=== PATIENT | male | born 1985 | race Caucasian/White ===

== ENCOUNTER 2019-04-12 18:18 | Observation (INO) | payer BC ==
[2019-04-12] MEDS ORDERED: Ondansetron 4 MG/2 ML SDV IV ONE (18:29)
--- NOTE | 2019-04-12 18:29 | EDM.PDOC ---
<Shakeel Lackey M - Last Filed: 04/12/19 18:24> ED HPI GENERAL MEDICAL PROBLEM - General Chief Complaint: General Stated Complaint: AMBULANCE Time Seen by Provider: 04/12/19 18:18 Source of Information: Reports: Patient History Limitations: Reports: No Limitations - History of Present Illness INITIAL COMMENTS - FREE TEXT/NARRATIVE: This 34 yo male patient was brought to the ED by [facility] due to dizziness along with nausea and vomiting. The patient reports he had some nausea and vomiting yesterday, but was feeling well up until this incident. The patient reports he feels like the room is spinning at this time. The patient has not had any previous similar episodes in the past. The patient reports he feels like he has some tingling in his forehead and extremities. Onset: Today Duration: Hour(s):, Constant Location: Reports: Generalized Quality: Reports: Other Severity: Moderate Improves with: Reports: None Worsens with: Reports: None Context: Reports: Other Associated Symptoms: Reports: No Other Symptoms Head Pain Score (Numeric/FACES): 5 - Related Data Allergies Allergy/AdvReac Type Severity Reaction Status Date / Time Penicillins Allergy Nausea and Verified 04/12/19 20:46 Vomiting Home Meds: Home Meds . [No Known Home Meds] 04/12/19 [History] ED ROS GENERAL - Review of Systems Review Of Systems: Comprehensive ROS is negative, except as noted in HPI. ED EXAM, GENERAL - Physical Exam Exam: See Below Exam Limited By: No Limitations General Appearance: Alert, WD/WN, Moderate Distress Eye Exam: Bilateral Eye: EOMI, Normal Inspection, PERRL Ears: Normal External Exam, Normal Canal, Hearing Grossly Normal, Normal TMs Nose: Normal Inspection, Normal Mucosa, No Blood Throat/Mouth: Normal Inspection, Normal Lips, Normal Teeth, Normal Gums, Normal Oropharynx, Normal Voice, No Airway Compromise Head: Atraumatic, Normocephalic Neck: Normal Inspection, Supple, Non-Tender, Full Range of Motion Respiratory/Chest: No Respiratory Distress, Lungs Clear, Normal Breath Sounds, No Accessory Muscle Use, Chest Non-Tender Cardiovascular: Normal Peripheral Pulses, Regular Rate, Rhythm, No Edema, No Gallop, No JVD, No Murmur, No Rub GI/Abdominal: Normal Bowel Sounds, Soft, Non-Tender, No Organomegaly, No Distention, No Abnormal Bruit, No Mass (Male) Exam: Deferred Rectal (Males) Exam: Deferred Back Exam: Normal Inspection, Full Range of Motion, NT Extremities: Normal Inspection, Normal Range of Motion, Non-Tender, Normal Capillary Refill, No Pedal Edema Neurological: Alert, Oriented, CN II-XII Intact, Normal Cognition, Normal Gait, Normal Reflexes, No Motor/Sensory Deficits Psychiatric: Normal Affect, Normal Mood Skin Exam: Warm, Dry, Intact, Normal Color, No Rash Course - Vital Signs Last Recorded V/S: Last Vital Signs Temp 97.9 F 04/13/19 04:09 Pulse 67 04/13/19 04:09 Resp 16 04/13/19 04:09 BP 110/58 L 04/13/19 04:09 Pulse Ox 98 04/13/19 04:09 - Orders/Labs/Meds Orders: Active Orders 24 hr Category Date Time Status EKG Documentation Completion [RC] URGENT Care 04/12/19 18:19 Active CULTURE URINE [RM] Urgent Lab 04/12/19 21:25 Received Medication Orders Acetaminophen (Tylenol) 650 mg PO Q4H PRN PRN Reason: Pain (Mild 1-3)/fever Heparin Sodium (Porcine) (Heparin Sodium) 5,000 units SUBCUT Q8HR OZ Potassium Chloride/Sodium Chloride (Normal Saline With 20 Meq Kcl) 1,000 mls @ 125 mls/hr IV ASDIRECTED OZ Last Admin: 04/12/19 23:38 Dose: 125 mls/hr Meclizine HCl (Antivert) 25 mg PO Q6H OZ Last Admin: 04/13/19 04:06 Dose: 25 mg Admin: 04/12/19 22:57 Dose: 25 mg Ondansetron HCl (Zofran Odt) 4 mg PO Q6H PRN PRN Reason: nausea, able to take PO Ondansetron HCl (Zofran) 4 mg IVPUSH Q4H PRN PRN Reason: Nausea/Vomiting Sodium Chloride (Saline Flush) 10 ml FLUSH ASDIRECTED PRN PRN Reason: Keep Vein Open Last Admin: 04/12/19 23:37 Dose: 10 ml Zolpidem Tartrate (Ambien) 5 mg PO BEDTIME PRN PRN Reason: Sleep Labs: Laboratory Tests 04/12/19 04/12/19 Range/Units 18:10 18:10 WBC 19.5 H (5.0-10.0) 10^3/uL RBC 5.49 (4.6-6.2) 10^6/uL Hgb 17.8 (14.0-18.0) g/dL Hct 48.9 (40.0-54.0) % MCV 89.1 (80-100) fL MCH 32.4 (27.0-34.0) pg MCHC 36.4 H (33.0-35.0) g/dL Plt Count 257 (150-450) 10^3/uL Neut % (Auto) 76.5 H (42.2-75.2) % Lymph % (Auto) 17.1 L (20.5-50.1) % [place] % (Auto) 5.6 (2-8) % Eos % (Auto) 0.6 L (1.0-3.0) % Baso % (Auto) 0.2 (0.0-1.0) % Sodium 135 (135-145) mmol/L Potassium 3.7 (3.6-5.0) mmol/L Chloride 101 (101-111) mmol/L Carbon Dioxide 21.0 (21.0-31.0) mmol/L Anion Gap 16.7 BUN 11 (7-18) mg/dL Creatinine 1.1 (0.6-1.3) mg/dL Est Cr Clr Drug Dosing 92.41 mL/min Estimated GFR (MDRD) > 60 BUN/Creatinine Ratio 10.00 Glucose 158 H (74-105) mg/dL Calcium 9.5 (8.4-10.2) mg/dl Total Bilirubin 1.3 H (0.2-1.0) mg/dL AST 28 (10-42) IU/L ALT 30 (10-60) IU/L Alkaline Phosphatase 72 (42-121) IU/L Troponin I < 0.02 (0.00-0.02) ng/ml Total Protein 7.5 (6.7-8.2) g/dl Albumin 4.7 (3.2-5.5) g/dl Globulin 2.8 Albumin/Globulin Ratio 1.68 Meds: Medications Generic Name Dose Route Start Last Admin Trade Name Freq PRN Reason Stop Dose Admin Acetaminophen 650 mg 04/12/19 22:17 Tylenol PO Q4H PRN Pain (Mild 1-3)/fever Heparin Sodium (Porcine) 5,000 units 04/13/19 06:00 Heparin Sodium SUBCUT Q8HR OZ Potassium Chloride/Sodium Chloride 1,000 mls @ 125 mls/hr 04/12/19 22:30 01/21 23:38 Normal Saline With 20 Meq Kcl IV 125 mls/hr ASDIRECTED OZ Administration Meclizine HCl 25 mg 04/12/19 22:30 04/13/19 04:06 Antivert PO 25 mg Q6H OZ Administration Ondansetron HCl 4 mg 04/13/19 00:30 Zofran Odt PO Q6H PRN nausea, able to take PO Ondansetron HCl 4 mg 04/13/19 00:30 Zofran IVPUSH Q4H PRN Nausea/Vomiting Sodium Chloride 10 ml 04/12/19 22:17 04/12/19 23:37 Saline Flush FLUSH 10 ml ASDIRECTED PRN Administration Keep Vein Open Zolpidem Tartrate 5 mg 04/12/19 22:17 Ambien PO BEDTIME PRN Sleep Discontinued Medications Generic Name Dose Route Start Last Admin Trade Name Freq PRN Reason Stop Dose Admin Metoclopramide HCl 10 mg 04/12/19 19:16 04/12/19 19:18 Reglan IVPUSH 04/12/19 19:17 10 mg ONETIME ONE Administration Metoclopramide HCl 10 mg 04/12/19 19:16 04/12/19 19:22 Reglan IVPUSH 04/12/19 19:17 Not Given ONETIME ONE Ondansetron HCl 4 mg 04/12/19 18:29 04/12/19 18:37 Zofran IV 04/12/19 18:30 4 mg ONETIME ONE Administration Departure - Departure Disposition: Home, Self-Care 01 Clinical Impression: Vertigo, intermittent Vomiting Qualifiers: Vomiting type: bilious vomiting Nausea presence: with nausea Qualified Code(s) : R11.14 - Bilious vomiting - Discharge Information - My Orders Last 24 Hours: My Active Orders 04/12/19 21:25 CULTURE URINE [RM] Urgent - Assessment/Plan Last 24 Hours: My Active Orders 04/12/19 21:25 CULTURE URINE [RM] Urgent <Vero Georges - Last Filed: 04/13/19 04:47> Course - Radiology Interpretation Free Text/Narrative:: Head CT negative, see report - Re-Assessments/Exams Free Text/Narrative Re-Assessment/Exam: 04/13/19 04:43 Dr Mckeon accepted patient for further management. Nausea improved. Cheeks flushed, Extremities warm. Departure - Departure Time of Disposition: 20:35 Condition: Good - Discharge Information *PRESCRIPTION DRUG MONITORING PROGRAM REVIEWED*: No *COPY OF PRESCRIPTION DRUG MONITORING REPORT IN PATIENT CONCHA: No
[2019-04-12 18:37] LABS: ANION GAP 16.7; CHLORIDE,CL 101 mmol/L (101-111); SODIUM,NA 135 mmol/L (135-145)
[2019-04-12] MEDS ORDERED: Metoclopramide 10 MG/2 ML SDV IVPUSH ONE ×2 (19:16)
[2019-04-12] MEDS ORDERED: Acetaminophen 325 MG Tab PO PRN (22:17)
[2019-04-12] MEDS ORDERED: Zolpidem 5 MG Tab PO PRN (22:17)
[2019-04-12] MEDS ORDERED: Sodium Chloride 0.9% 10 ML Syringe FLUSH PRN (22:17)
--- NOTE | 2019-04-12 22:30 | PCM.HP ---
H&P History of Present Illness - General Date of Service: 04/12/19 Admit Problem/Dx: Admission Diagnosis/Problem Admission Diagnosis/Problem Dizziness Source of Information: Patient History Limitations: Reports: No Limitations - History of Present Illness Initial Comments - Free Text/Narative: 34-year-old with no significant past medical history. 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 He developed relatively sudden onset of vertigo, feeling spinning sensation. Associated with nausea and vomiting. Some tingling in the forehead and extremities but no focal motor deficit. The vertigo is worse with sitting up, movements of the head. No fever, no sore throat, no earache. No chest pain, no palpitation. Head Pain Score (Numeric/FACES): 0 - Related Data Allergies/Adverse Reactions: Allergies Allergy/AdvReac Type Severity Reaction Status Date / Time Penicillins Allergy Nausea and Verified 04/12/19 20:46 Vomiting Home Medications: Home Meds . [No Known Home Meds] 04/12/19 [History] Past Medical History HEENT History: Reports: Impaired Vision Cardiovascular History: Reports: None Respiratory History: Reports: None Gastrointestinal History: Reports: None Genitourinary History: Reports: None Musculoskeletal History: Reports: Other (See Below) Other Musculoskeletal History: pinched sciatic nerve Neurological History: Reports: Other (See Below) Other Neuro History: sciatica Psychiatric History: Reports: Learning Disability Endocrine/Metabolic History: Reports: None Hematologic History: Reports: None Immunologic History: Reports: None Oncologic (Cancer) History: Reports: None Dermatologic History: Reports: None - Infectious Disease History Infectious Disease History: Reports: Chicken Pox - Past Surgical History Head Surgeries/Procedures: Reports: None Cardiovascular Surgical History: Reports: None GI Surgical History: Reports: None Male Surgical History: Reports: None Endocrine Surgical History: Reports: None Neurological Surgical History: Reports: None Musculoskeletal Surgical History: Reports: None Social & Family History - Family History Family Medical History: Noncontributory - Tobacco Use Smoking Status *Q: Current Every Day Smoker Years of Tobacco use: 16 Packs/Tins Daily: 1 Second Hand Smoke Exposure: No - Caffeine Use Caffeine Use: Reports: Energy Drinks - Recreational Drug Use Recreational Drug Use: No H&P Review of Systems - Review of Systems: Review Of Systems: See Below General: Denies: Fever, Chills Pulmonary: Denies: Shortness of Breath Cardiovascular: Denies: Chest Pain, Edema Gastrointestinal: Denies: Abdominal Pain Genitourinary: Denies: Dysuria Exam - Exam Exam: See Below - Vital Signs Vital Signs: Last Vital Signs Temp 36.7 C 04/12/19 20:42 Pulse 79 04/12/19 20:42 Resp 16 04/12/19 20:42 BP 118/66 04/12/19 20:42 Pulse Ox 99 04/12/19 20:42 Weight: 83.915 kg - Exam General: Alert, Oriented Neck: Supple Lungs: Clear to Auscultation, Normal Respiratory Effort Cardiovascular: Regular Rate, Regular Rhythm GI/Abdominal Exam: Normal Bowel Sounds, Soft, Non-Tender Back Exam: Normal Inspection Extremities: Normal Inspection, No Pedal Edema Skin: Warm, Dry Neuro Extensive - Mental Status: Alert, Oriented x3, Other (Nystagmus when looking towards the right) Neuro Extensive - Motor, Sensory, Reflexes: No: Abnormal Sensation, Abnormal Motor, Tremor Psychiatric: Alert, Normal Affect, Normal Mood - Patient Data Lab Results Last 24 hrs: Laboratory Results - last 24 hr 04/12/19 04/12/19 04/12/19 Range/Units 18:10 18:10 21:25 WBC 19.5 H (5.0-10.0) 10^3/uL RBC 5.49 (4.6-6.2) 10^6/uL Hgb 17.8 (14.0-18.0) g/dL Hct 48.9 (40.0-54.0) % MCV 89.1 (80-100) fL MCH 32.4 (27.0-34.0) pg MCHC 36.4 H (33.0-35.0) g/dL Plt Count 257 (150-450) 10^3/uL Neut % (Auto) 76.5 H (42.2-75.2) % Lymph % (Auto) 17.1 L (20.5-50.1) % [place] % (Auto) 5.6 (2-8) % Eos % (Auto) 0.6 L (1.0-3.0) % Baso % (Auto) 0.2 (0.0-1.0) % Sodium 135 (135-145) mmol/L Potassium 3.7 (3.6-5.0) mmol/L Chloride 101 (101-111) mmol/L Carbon Dioxide 21.0 (21.0-31.0) mmol/L Anion Gap 16.7 BUN 11 (7-18) mg/dL Creatinine 1.1 (0.6-1.3) mg/dL Est Cr Clr Drug Dosing 92.41 mL/min Estimated GFR (MDRD) > 60 BUN/Creatinine Ratio 10.00 Glucose 158 H (74-105) mg/dL Calcium 9.5 (8.4-10.2) mg/dl Total Bilirubin 1.3 H (0.2-1.0) mg/dL AST 28 (10-42) IU/L ALT 30 (10-60) IU/L Alkaline Phosphatase 72 (42-121) IU/L Troponin I < 0.02 (0.00-0.02) ng/ml Total Protein 7.5 (6.7-8.2) g/dl Albumin 4.7 (3.2-5.5) g/dl Globulin 2.8 Albumin/Globulin Ratio 1.68 Urine Color Yellow (YELLOW) Urine Appearance Clear (CLEAR) Urine pH 8.5 (5.0-9.0) Ur Specific [place] 1.015 (1.005-1.030) Urine Protein Negative (NEGATIVE) Urine Glucose (UA) Negative (NEGATIVE) Urine Ketones Negative (NEGATIVE) Urine Occult Blood Negative (NEGATIVE) Urine Nitrite Negative (NEGATIVE) Urine Bilirubin Negative (NEGATIVE) Urine Urobilinogen 0.2 (0.2-1.0) mg/dL Ur Leukocyte Esterase Trace H (NEGATIVE) Result Diagrams: 04/12/19 18:10 04/12/19 18:10 - Problem List (1) BPV (benign positional vertigo) SNOMED Code(s): 145433586 ICD Code: H81.10 - BENIGN PAROXYSMAL VERTIGO, UNSPECIFIED EAR Status: Acute Current Visit: Yes Problem List Initiated/Reviewed/Updated: Yes Orders Last 24hrs: Active Orders 24 hr Category Date Time Status Admission Diagnosis [ADT] Stat ADT 04/12/19 20:28 Ordered Admission Status [Patient Status] [ADT] Routine ADT 04/12/19 20:28 Active Antiembolic Devices [RC] PER UNIT ROUTINE Care 04/12/19 22:18 Ordered EKG Documentation Completion [RC] URGENT Care 04/12/19 18:19 Active Oxygen Therapy [RC] PRN Care 04/12/19 22:17 Ordered Peripheral IV Care [RC] . DIRECTED Care 04/12/19 22:18 Ordered Up With Assistance [RC] ASDIRECTED Care 04/12/19 22:17 Ordered VTE/DVT Education [RC] PER UNIT ROUTINE Care 04/12/19 22:17 Ordered Vital Signs [RC] Q4H Care 04/12/19 22:17 Ordered Regular Diet [DIET] Diet 04/12/19 Breakfast Ordered BASIC METABOLIC PANEL,BMP [CHEM] AM Lab 04/13/19 05:15 Ordered CBC WITH AUTO DIFF [HEME] AM Lab 04/13/19 05:15 Ordered CULTURE URINE [RM] Urgent Lab 04/12/19 21:25 Received UA W/MICROSCOPIC [URIN] Urgent Lab 04/12/19 21:25 Results Acetaminophen [Tylenol] Med 04/12/19 22:17 Ordered 650 mg PO Q4H PRN Heparin Sodium Med 04/13/19 06:00 Ordered 5,000 units SUBCUT Q8HR Meclizine [Antivert] Med 04/12/19 22:30 Ordered 25 mg PO Q6H Ondansetron [Zofran ODT] Med 04/12/19 22:17 Ordered 4 mg PO Q6H PRN Ondansetron [Zofran] Med 04/12/19 22:17 Ordered 4 mg IVPUSH Q4H PRN Sodium Chloride 0.9% [Saline Flush] Med 04/12/19 22:17 Ordered 10 ml FLUSH ASDIRECTED PRN Sodium Chloride 0.9% with KCl 20 mEq @ 125 mL/Hr (1000 Med 04/12/19 22:30 Ordered mL) NS + KCl 20mEq/L [Normal Saline with 20 mEq KCl] 1,000 ml IV ASDIRECTED Zolpidem [Ambien] Med 04/12/19 22:17 Ordered 5 mg PO BEDTIME PRN Antiembolic Hose [OM.PC] Per Unit Routine Oth 04/12/19 22:18 Ordered Peripheral IV Insertion Adult [OM.PC] Routine Oth 04/12/19 22:17 Ordered Saline Lock Insert [OM.PC] Routine Oth 04/12/19 22:17 Ordered Resuscitation Status Routine Resus Stat 04/12/19 22:17 Ordered Medication Orders Acetaminophen (Tylenol) 650 mg PO Q4H PRN PRN Reason: Pain (Mild 1-3)/fever Heparin Sodium (Porcine) (Heparin Sodium) 5,000 units SUBCUT Q8HR OZ Potassium Chloride/Sodium Chloride (Normal Saline With 20 Meq Kcl) 1,000 mls @ 125 mls/hr IV ASDIRECTED OZ Meclizine HCl (Antivert) 25 mg PO Q6H OZ Ondansetron HCl (Zofran Odt) 4 mg PO Q6H PRN PRN Reason: nausea, able to take PO Ondansetron HCl (Zofran) 4 mg IVPUSH Q4H PRN PRN Reason: Nausea/Vomiting Sodium Chloride (Saline Flush) 10 ml FLUSH ASDIRECTED PRN PRN Reason: Keep Vein Open Zolpidem Tartrate (Ambien) 5 mg PO BEDTIME PRN PRN Reason: Sleep Assessment/Plan Comment:: 34-year-old who suddenly developed vertigo Likely benign positional vertigo Associated with significant nausea and vomiting. Unable to keep oral medications and nutrition down. We will give the patient IV hydration Treat with meclizine Give antiemetics Consult Occupational Therapy Doubt stroke If no resolution of symptoms or focal neuro deficit noted consider MRI DVT prophylaxis with subcutaneous heparin
[2019-04-12] MEDS: Meclizine 12.5 MG Tab PO SCH (22:57)
[2019-04-12] MEDS: NS + KCl 20mEq/L 1,000 ML IV SCH (23:38)
[2019-04-13] MEDS ORDERED: Ondansetron 4 MG/2 ML SDV IVPUSH PRN (00:30)
[2019-04-13] MEDS ORDERED: Ondansetron 4 MG Tab.DIS PO PRN (00:30)
[2019-04-13] MEDS: Meclizine 12.5 MG Tab PO SCH ×4 (04:06→21:26)
[2019-04-13] MEDS: Heparin Sodium 5,000 Units/ML Vial SUBCUT SCH ×3 (05:54→21:26)
[2019-04-13 06:33] LABS: ANION GAP 10.7; CHLORIDE,CL 107 mmol/L (101-111); SODIUM,NA 139 mmol/L (135-145)
[2019-04-13] MEDS: NS + KCl 20mEq/L 1,000 ML IV SCH ×2 (10:44→21:25)
--- NOTE | 2019-04-13 12:17 | PCM.PN ---
- General Info Date of Service: 04/13/19 Admission Dx/Problem (Free Text): Admission Diagnosis/Problem Admission Diagnosis/Problem Dizziness Subjective Update: vertigo has improved still unsteady less nausea no fever, no chills, no LATIF - Review of Systems Pulmonary: Denies: Shortness of Breath Cardiovascular: Denies: Chest Pain Gastrointestinal: Denies: Abdominal Pain - Patient Data Vitals - Most Recent: Last Vital Signs Temp 35.9 C 04/13/19 10:47 Pulse 70 04/13/19 10:47 Resp 16 04/13/19 10:47 BP 111/62 04/13/19 10:47 Pulse Ox 97 04/13/19 10:47 Weight - Most Recent: 83.915 kg I&O - Last 24 Hours: Intake & Output 04/12/19 04/13/19 04/13/19 22:59 06:59 14:59 Intake Total 770 Output Total 50 Balance -50 770 Lab Results Last 24 Hours: Laboratory Results - last 24 hr 04/12/19 04/12/19 04/12/19 Range/Units 18:10 18:10 21:25 WBC 19.5 H (5.0-10.0) 10^3/uL RBC 5.49 (4.6-6.2) 10^6/uL Hgb 17.8 (14.0-18.0) g/dL Hct 48.9 (40.0-54.0) % MCV 89.1 (80-100) fL MCH 32.4 (27.0-34.0) pg MCHC 36.4 H (33.0-35.0) g/dL Plt Count 257 (150-450) 10^3/uL Neut % (Auto) 76.5 H (42.2-75.2) % Lymph % (Auto) 17.1 L (20.5-50.1) % [place] % (Auto) 5.6 (2-8) % Eos % (Auto) 0.6 L (1.0-3.0) % Baso % (Auto) 0.2 (0.0-1.0) % Sodium 135 (135-145) mmol/L Potassium 3.7 (3.6-5.0) mmol/L Chloride 101 (101-111) mmol/L Carbon Dioxide 21.0 (21.0-31.0) mmol/L Anion Gap 16.7 BUN 11 (7-18) mg/dL Creatinine 1.1 (0.6-1.3) mg/dL Est Cr Clr Drug Dosing 92.41 mL/min Estimated GFR (MDRD) > 60 BUN/Creatinine Ratio 10.00 Glucose 158 H (74-105) mg/dL Calcium 9.5 (8.4-10.2) mg/dl Total Bilirubin 1.3 H (0.2-1.0) mg/dL AST 28 (10-42) IU/L ALT 30 (10-60) IU/L Alkaline Phosphatase 72 (42-121) IU/L Troponin I < 0.02 (0.00-0.02) ng/ml Total Protein 7.5 (6.7-8.2) g/dl Albumin 4.7 (3.2-5.5) g/dl Globulin 2.8 Albumin/Globulin Ratio 1.68 Urine Color Yellow (YELLOW) Urine Appearance Clear (CLEAR) Urine pH 8.5 (5.0-9.0) Ur Specific [place] 1.015 (1.005-1.030) Urine Protein Negative (NEGATIVE) Urine Glucose (UA) Negative (NEGATIVE) Urine Ketones Negative (NEGATIVE) Urine Occult Blood Negative (NEGATIVE) Urine Nitrite Negative (NEGATIVE) Urine Bilirubin Negative (NEGATIVE) Urine Urobilinogen 0.2 (0.2-1.0) mg/dL Ur Leukocyte Esterase Trace H (NEGATIVE) Urine RBC 0-5 /HPF Urine WBC 5-10 H (0-5/HPF) /HPF Ur Epithelial Cells Few (NOT SEEN) /HPF Urine Bacteria Few (0-FEW/HPF) /HPF Urine Mucus Moderate H (NOT SEEN) /LPF 04/13/19 04/13/19 Range/Units 05:35 05:35 WBC 12.9 H (5.0-10.0) 10^3/uL RBC 4.70 (4.6-6.2) 10^6/uL Hgb 15.3 D (14.0-18.0) g/dL Hct 43.4 (40.0-54.0) % MCV 92.3 D (80-100) fL MCH 32.6 (27.0-34.0) pg MCHC 35.3 H (33.0-35.0) g/dL Plt Count 213 (150-450) 10^3/uL Neut % (Auto) 59.8 (42.2-75.2) % Lymph % (Auto) 30.9 (20.5-50.1) % [place] % (Auto) 7.2 (2-8) % Eos % (Auto) 1.9 (1.0-3.0) % Baso % (Auto) 0.2 (0.0-1.0) % Sodium 139 (135-145) mmol/L Potassium 3.7 (3.6-5.0) mmol/L Chloride 107 (101-111) mmol/L Carbon Dioxide 25.0 (21.0-31.0) mmol/L Anion Gap 10.7 BUN 10 (7-18) mg/dL Creatinine 0.9 (0.6-1.3) mg/dL Est Cr Clr Drug Dosing 112.94 mL/min Estimated GFR (MDRD) > 60 BUN/Creatinine Ratio Glucose 100 (74-105) mg/dL Calcium 8.4 (8.4-10.2) mg/dl Total Bilirubin (0.2-1.0) mg/dL AST (10-42) IU/L ALT (10-60) IU/L Alkaline Phosphatase (42-121) IU/L Troponin I (0.00-0.02) ng/ml Total Protein (6.7-8.2) g/dl Albumin (3.2-5.5) g/dl Globulin Albumin/Globulin Ratio Urine Color (YELLOW) Urine Appearance (CLEAR) Urine pH (5.0-9.0) Ur Specific [place] (1.005-1.030) Urine Protein (NEGATIVE) Urine Glucose (UA) (NEGATIVE) Urine Ketones (NEGATIVE) Urine Occult Blood (NEGATIVE) Urine Nitrite (NEGATIVE) Urine Bilirubin (NEGATIVE) Urine Urobilinogen (0.2-1.0) mg/dL Ur Leukocyte Esterase (NEGATIVE) Urine RBC /HPF Urine WBC (0-5/HPF) /HPF Ur Epithelial Cells (NOT SEEN) /HPF Urine Bacteria (0-FEW/HPF) /HPF Urine Mucus (NOT SEEN) /LPF Med Orders - Current: Current Medications Acetaminophen (Tylenol) 650 mg PO Q4H PRN PRN Reason: Pain (Mild 1-3)/fever Heparin Sodium (Porcine) (Heparin Sodium) 5,000 units SUBCUT Q8HR OZ Last Admin: 04/13/19 05:54 Dose: 5,000 units Potassium Chloride/Sodium Chloride (Normal Saline With 20 Meq Kcl) 1,000 mls @ 125 mls/hr IV ASDIRECTED [facility] Last Admin: 04/13/19 10:44 Dose: 125 mls/hr Meclizine HCl (Antivert) 25 mg PO Q6H [facility] Last Admin: 04/13/19 10:43 Dose: 25 mg Ondansetron HCl (Zofran Odt) 4 mg PO Q6H PRN PRN Reason: nausea, able to take PO Ondansetron HCl (Zofran) 4 mg IVPUSH Q4H PRN PRN Reason: Nausea/Vomiting Sodium Chloride (Saline Flush) 10 ml FLUSH ASDIRECTED PRN PRN Reason: Keep Vein Open Last Admin: 04/12/19 23:37 Dose: 10 ml Zolpidem Tartrate (Ambien) 5 mg PO BEDTIME PRN PRN Reason: Sleep Discontinued Medications Metoclopramide HCl (Reglan) 10 mg IVPUSH ONETIME ONE Stop: 04/12/19 19:17 Last Admin: 04/12/19 19:18 Dose: 10 mg Metoclopramide HCl (Reglan) 10 mg IVPUSH ONETIME ONE Stop: 04/12/19 19:17 Last Admin: 04/12/19 19:22 Dose: Not Given Ondansetron HCl (Zofran) 4 mg IV ONETIME ONE Stop: 04/12/19 18:30 Last Admin: 04/12/19 18:37 Dose: 4 mg - Exam General: Alert, Oriented HEENT: Other (no vertigo) Neck: Supple Lungs: Clear to Auscultation, Normal Respiratory Effort Cardiovascular: Regular Rate, Regular Rhythm GI/Abdominal Exam: Normal Bowel Sounds, Soft, Non-Tender Extremities: No Pedal Edema Skin: Warm, Dry, Intact Neurological: No New Focal Deficit, Other (motor and sensation is normal, finger to nose normal) Psy/Mental Status: Alert, Normal Affect, Normal Mood Sepsis Event Note - Evaluation Sepsis Screening Result: No Definite Risk - Focused Exam Vital Signs: Vital Signs Temp Pulse Resp BP Pulse Ox 04/13/19 10:47 35.9 C 70 16 111/62 97 04/13/19 08:13 36.6 C 53 L 16 96/53 L 98 04/13/19 04:09 36.6 C 67 16 110/58 L 98 Date Exam was Performed: 04/13/19 Time Exam was Performed: 12:15 - Problem List & Annotations (1) BPV (benign positional vertigo) SNOMED Code(s): 648244221 Code(s): H81.10 - BENIGN PAROXYSMAL VERTIGO, UNSPECIFIED EAR Status: Acute Current Visit: Yes - Problem List Review Problem List Initiated/Reviewed/Updated: Yes - My Orders Last 24 Hours: My Active Orders 04/12/19 22:17 Oxygen Therapy [RC] PRN Up With Assistance [RC] ASDIRECTED VTE/DVT Education [RC] Vital Signs [RC] Q4H Acetaminophen [Tylenol] 650 mg PO Q4H PRN Sodium Chloride 0.9% [Saline Flush] 10 ml FLUSH ASDIRECTED PRN Zolpidem [Ambien] 5 mg PO BEDTIME PRN Peripheral IV Insertion Adult [OM.PC] Routine Saline Lock Insert [OM.PC] Routine Resuscitation Status Routine 04/12/19 22:18 Antiembolic Devices [RC] Peripheral IV Care [RC] Antiembolic Hose [OM.PC] Per Unit Routine 04/12/19 22:30 Meclizine [Antivert] 25 mg PO Q6H NS + KCl 20mEq/L [Normal Saline with 20 mEq KCl] 1,000 ml IV ASDIRECTED 04/12/19 22:32 OT Evaluation and Treatment [CONS] Routine 04/13/19 00:30 Ondansetron [Zofran ODT] 4 mg PO Q6H PRN Ondansetron [Zofran] 4 mg IVPUSH Q4H PRN 04/13/19 06:00 Heparin Sodium 5,000 units SUBCUT Q8HR 04/13/19 12:13 Brain w wo Cont [MR] Routine - Plan Plan:: 34-year-old who suddenly developed vertigo Likely benign positional vertigo Associated with significant nausea and vomiting. Unable to keep oral medications and nutrition down. We will give the patient IV hydration Treat with meclizine Give antiemetics Consulted Physical Therapy no more nystagmus noted will get MRI of brain r/o traumatic injury with h/o falls DVT prophylaxis with subcutaneous heparin
[2019-04-13] MEDS ORDERED: Gadobenate Dimeglumine 529 MG/ML 20 ML SDV IVPUSH ONE (12:27)
--- NOTE | 2019-04-13 17:21 | PCM.SN ---
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 - stopped taking meds many years ago according to girlfriend a few days ago had a possible syncopal episode he said his prior tx. for seizure was at [facility] looked up - no previous MR imaging - CT from 11/2007 and 08/2008 normal exam - last Neurologist dr. Altamirano d/ w girlfriend no recent grand mal seizure d/w mother 1 month premature apnea, lung problems initially in NICU learning disability in school,
[2019-04-14] MEDS: Meclizine 12.5 MG Tab PO SCH ×3 (03:44→10:40)
[2019-04-14] MEDS: NS + KCl 20mEq/L 1,000 ML IV SCH (05:17)
[2019-04-14] MEDS: Heparin Sodium 5,000 Units/ML Vial SUBCUT SCH (05:26)
--- NOTE | 2019-04-15 02:23 | DISCH ---
ADMITTING DIAGNOSES: 1. Benign positional vertigo. 2. Frequent falls. DISCHARGE DIAGNOSES: 1. Benign positional vertigo, improved. 2. History of frequent falls prior to getting admitted to the hospital. 3. Abnormal findings on the MRI scan of the brain. HISTORY OF PRESENTING ILLNESS: Mr. Marta Terrell is a 34-year-old male with medical history significant for seizures in the past and has not been taking his seizure medications for the last few years. He presented to the ER with complaints of having dizzy spells and was admitted for possible benign positional vertigo. The patient had a CT scan of the head and also an MRI scan of the brain. 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 Deep white matter on image 8 of series 501 and series 601 and images 16 of series 100 and series 901. The patient did not have any focal neurological deficit. The patient was evaluated by Physical Therapy and Occupational Therapy. The MRI did not show any evidence of acute ischemic infarct or intracranial bleed. He was able to ambulate well without any difficulty. He did not have any seizure episode in the hospital. The patient was treated with meclizine after which his vertigo seems to be improved. The patient was explained about the importance of being compliant with medications, and follow up with Neurology at [facility] for further workup of his abnormal findings on the MRI scan and also for possible seizures. He would benefit from getting an EEG. On further questioning, the patient claims that he has been having some falls prior to coming to the hospital few weeks back. So the patient is advised not to drive or operate any missionary until he is seen by a neurologist and get clearance from Neurology for driving as he is high risk for seizures. The patient is discharged home in stable condition. He is advised to follow up with his primary care physician the next 21 week of time and to follow with the Neurology Clinic as scheduled. DISCHARGE MEDICATIONS: Include meclizine 25 mg every 6 hours as needed. PHYSICAL EXAMINATION: Vital Signs: On the day of discharge; temperature of 98, pulse of 73, blood pressure 124/58, respiratory rate of 18, and saturating at 96%. General Appearance: The patient is well oriented to time, place, and person. Follows commands spontaneously. Cardiovascular System: S1 and S2 heard with normal intensity. No gallops. Respiratory System: Clear to auscultation bilaterally. No wheeze. No crepitations. Abdomen: Soft. Bowel sounds positive. Nontender. No rigidity. Extremities: No edema in bilateral lower extremities. Neurology: No gross focal neurological deficit. Cranial nerves intact. CONDITION ON ADMISSION: Poor. CONDITION ON DISCHARGE: Stable. DISPOSITION: Discharged to home. ACTIVITY: As tolerated. Do not drive or operate any machinery till seen by Neurology. FOLLOWUP: Follow up with primary care physician in next 1 week of time. Follow up with Neurology Clinic as scheduled for further workup of abnormal findings on MRI and possible EEG to rule out seizures. [facility] /[id number]
== END 2019-04-14 14:10 | disposition home or self-care (01) ==
LOC: DL.ED 18:18 → DL.MS 20:28
PROVIDERS: ADMIT Internal Medicine; ATTEND Internal Medicine
DX: H81.10 Benign paroxysmal vertigo, unspecified ear (principal); R29.6 Repeated falls; R93.0 Abnormal findings on diagnostic imaging of skull and head, not elsewhere classified; F17.210 Nicotine dependence, cigarettes, uncomplicated; Z88.0 Allergy status to penicillin
CPT/HCPCS: 36415; 70450; 70553; 80048; 80053; 81001; 84484; 85025; 87086; 87088; 87186; 93005; 96374; 96375; 97162; 99285; A9270; A9577; J1644; J2405; J2765; J3480; 96361; 96372; G0378